=== PATIENT | female | born 1990 | race Caucasian/White ===

== ENCOUNTER 2023-11-20 10:00 | Observation (INO) | payer OTHER, SELFPAY ==
[2023-11-20 10:16] LABS: Urine Albumin Negative (Neg - Trace); Urine Bilirubin Negative (Negative); Urine Character Clear (Clear); Urine Color Yellow; Urine Glucose Negative (Negative); Urine Ketone Negative (Negative); Urine Leukocyte Trace (Negative); Urine Nitrite Negative (Negative); Urine Occult Blood 1+ (Negative); Urine Urobilinogen Negative (Neg - 1+)
[2023-11-20 10:17] LABS: % Basophils 0.2 % (0-2); % Eosinophils 0.5 % (0-6); % Immature Granulocytes 0.9 % (0-0.5); % Lymphocytes 13.5 % (20.5-51.1); % Monocytes 5.1 % (1.7-9.3); % Neutrophils 79.8 % (42.2-75.2); Absolute Eosinophils 0.1 10^3/uL (0-0.7); Absolute Immature Granulocytes 0.1 10^3/uL (0-0.05); Absolute Lymphocytes 1.5 10^3/uL (1.2-3.4); Absolute Monocytes 0.6 10^3/uL (0.1-0.6); Absolute Neutrophils 8.8 10^3/uL (1.4-6.5); Hematocrit 34.8 % (37.0-47.0); Mean Corp Hgb Conc. 34.5 g/dL (33.0-37.0); Mean Corpuscular Hgb 30.6 pg (27.0-31.0); Mean Corpuscular Volume 88.8 fL (81.0-99.0); Mean Platelet Volume 8.9 fL (7.4-10.4); Nucleated Red Blood Cells % 0 %; Platelet Count 225 10^3/uL (130-400); Red Blood Cell Count 3.92 10^6/uL (4.20-5.40); Red Cell Dist. Width 13.3 % (11.5-14.5)
[2023-11-20 10:30] LABS: Urine Bacteria Few (Negative)
[2023-11-20 10:32] LABS: ALT (SGPT) 17 U/L (0-35); AST (SGOT) 24 U/L (14-36); Albumin 3.5 g/dl (3.5-5.0); Alkaline Phosphatase 131 U/L (38-126); Blood Urea Nitrogen 6 mg/dl (7-17); Calcium 8.6 mg/dl (8.4-10.2); Carbon Dioxide 19 mmol/L (22-30); Chloride 106 mmol/L (98-107); Glucose 84 mg/dl (70-99); Potassium 4.5 mmol/L (3.5-5.1); Sodium 131 mmol/L (135-145); Total Bilirubin 0.4 mg/dl (0.2-1.3); Total Protein 6.2 g/dl (6.3-8.2); Uric Acid 2.7 mg/dl (2.5-6.2); eGFR > 60.00
[2023-11-20 10:44] LABS: Protein/creatinine Ratio 0.2; Urine Protein 6 mg/dl
== END 2023-11-20 11:02 | disposition home or self-care (01) ==
LOC: PNTC-IN 10:00
PROVIDERS: ADMITTING PHYSICIAN Obstetrics & Gynecology; ATTENDING PHYSICIAN Obstetrics & Gynecology
DX: O36.8130 Decreased fetal movements, third trimester, not applicable or unspecified (principal); Z3A.33 33 weeks gestation of pregnancy; Z90.49 Acquired absence of other specified parts of digestive tract
CPT/HCPCS: 59025; 76815; 80053; 81003; 81015; 82570; 84156; 84550; 85025; 85027; G0378

== ENCOUNTER 2024-01-02 06:06 | Inpatient (IN) | payer OTHER, SELFPAY ==
[2024-01-02 06:32] VITALS: BP 129/78; BMI 36.6
[2024-01-02 07:38] LABS: % Basophils 0.1 % (0-2); % Eosinophils 0.5 % (0-6); % Immature Granulocytes 0.7 % (0-0.5); % Lymphocytes 18.4 % (20.5-51.1); % Monocytes 4.8 % (1.7-9.3); % Neutrophils 75.5 % (42.2-75.2); Absolute Immature Granulocytes 0.1 10^3/uL (0-0.05); Absolute Lymphocytes 1.6 10^3/uL (1.2-3.4); Absolute Monocytes 0.4 10^3/uL (0.1-0.6); Absolute Neutrophils 6.5 10^3/uL (1.4-6.5); Hematocrit 34.4 % (37.0-47.0); Hemoglobin 11.8 g/dL (12.0-16.0); Mean Corp Hgb Conc. 34.3 g/dL (33.0-37.0); Mean Corpuscular Hgb 30.4 pg (27.0-31.0); Mean Corpuscular Volume 88.7 fL (81.0-99.0); Mean Platelet Volume 9.8 fL (7.4-10.4); Nucleated Red Blood Cells % 0 %; Platelet Count 211 10^3/uL (130-400); Red Blood Cell Count 3.88 10^6/uL (4.20-5.40); Red Cell Dist. Width 14.3 % (11.5-14.5); White Blood Cell Count 8.6 10^3/uL (4.8-10.8)
[2024-01-02] MEDS: FLUSH (NSS) 1 FLUSH IV (11:20)
[2024-01-02] MEDS: LR 1000 IV (11:20)
[2024-01-02] MEDS: PITOCIN 30 UNITS/NSS 500 ML IV (11:21)
[2024-01-02] MEDS: SUBLIMAZE 100 MCG EPIDURAL (14:46)
[2024-01-02] MEDS: FENTANYL/BUPIVACAINE 100 EPIDURAL (14:47)
[2024-01-02] MEDS: TYLENOL 650 MG PO (23:29)
[2024-01-02] MEDS: MOTRIN 600 MG PO (23:29)
[2024-01-03] MEDS: MOTRIN 600 MG PO ×3 (05:43→18:41)
[2024-01-03] MEDS: TYLENOL 650 MG PO ×3 (05:43→18:41)
[2024-01-03 05:45] LABS: Hematocrit 32.7 % (37.0-47.0); Hemoglobin 11.2 g/dL (12.0-16.0)
[2024-01-03] MEDS: PRENATAL PLUS 1 TABLET PO (08:22)
[2024-01-03] MEDS: SENOKOT-S 1 TABLET PO (11:42)
[2024-01-04] MEDS: TYLENOL 650 MG PO (00:59)
[2024-01-04] MEDS: MOTRIN 600 MG PO ×2 (00:59→08:06)
[2024-01-04] MEDS: PRENATAL PLUS 1 TABLET PO (08:05)
[2024-01-04] MEDS: SENOKOT-S 1 TABLET PO (08:05)
[2024-01-05 14:27] LABS: Syphilis/T. pallidum Ab Reflex Negative (Negative)
== END 2024-01-04 12:26 | disposition home or self-care (01) | DRG 807 ==
LOC: LDRP 06:06
PROVIDERS: Obstetrics & Gynecology; ADMITTING PHYSICIAN Obstetrics & Gynecology
PROC: 0HQ9XZZ Repair Perineum Skin, External Approach (ICD-10-PCS; 2024-01-02)
PROC: 10E0XZZ Delivery of Products of Conception, External Approach (ICD-10-PCS; 2024-01-02)
DX: O34.211 Maternal care for low transverse scar from previous cesarean delivery (principal); Z37.0 Single live birth; O76 Abnormality in fetal heart rate and rhythm complicating labor and delivery; O69.81X0 Labor and delivery complicated by cord around neck, without compression, not applicable or unspecified; O70.0 First degree perineal laceration during delivery; Z3A.39 39 weeks gestation of pregnancy; N85.8 Other specified noninflammatory disorders of uterus
CPT/HCPCS: 36415; 85014; 85018; 85025; 86780; 86850; 86900; 86901

== ENCOUNTER → 2025-07-03 11:16 | Outpatient (REF) | payer OTHER, SELFPAY ==
[2025-07-03 11:51] LABS: Hematocrit 39.6 % (37.0-47.0); Hemoglobin 13.0 g/dL (12.0-16.0); Mean Corp Hgb Conc. 32.8 g/dL (33.0-37.0); Mean Corpuscular Volume 92.3 fL (81.0-99.0); Nucleated Red Blood Cells % 0 %; Platelet Count 241 10^3/uL (130-400); Red Cell Dist. Width 13.1 % (11.5-14.5)
[2025-07-03 12:21] LABS: ALT (SGPT) 19 U/L (0-35); AST (SGOT) 23 U/L (14-36); Albumin 4.6 g/dl (3.5-5.0); Alkaline Phosphatase 54 U/L (38-126); Carbon Dioxide 28 mmol/L (22-30); Glucose 108 mg/dl (70-99); Iron 71 ug/dl (37-170); Potassium 4.4 mmol/L (3.5-5.1); Sodium 138 mmol/L (135-145)
[2025-07-03 12:32] LABS: Blood Urea Nitrogen 16 mg/dl (7-17); Calcium 9.0 mg/dl (8.4-10.2); Chloride 105 mmol/L (98-107); HDL Cholesterol 130 mg/dl; LDL Cholesterol, Calculated 43 mg/dl; Total Protein 6.8 g/dl (6.3-8.2); Very Low Density Lipoprotein 8 mg/dl (0-30); eGFR > 60.00
[2025-07-03 12:37] LABS: Vitamin D, 25-OH*** 29.9 ng/mL (30-80)
[2025-07-03 12:51] LABS: TSH 0.71 uIU/ml (0.47-4.68)
[2025-07-03 12:55] LABS: Ferritin 27.4 ng/ml (6.24-137)
[2025-07-03 13:27] LABS: Folate 1.5 ng/ml (2.76-20); Vitamin B12 858 pg/ml (239-931)
[2025-07-06 11:57] LABS: ANA, IgG Reflex to HEp-2 None Detected (None Detected)
== END ==
LOC: REG 11:16
PROVIDERS: ATTENDING PHYSICIAN Nurse Practitioner Family
DX: N92.0 Excessive and frequent menstruation with regular cycle (principal); Z76.89 Persons encountering health services in other specified circumstances; I73.00 Raynaud's syndrome without gangrene; E06.3 Autoimmune thyroiditis
CPT/HCPCS: 36415; 80053; 80061; 82306; 82607; 82728; 82746; 83540; 84439; 84443; 85025; 86038